=== PATIENT | male | born 1980 | race American Indian/Alaskan Native ===

== ENCOUNTER 2017-02-28 09:08 | Emergency (ER) | payer BC, OTHER ==
[2017-02-28 10:41] VITALS: BP 120/73
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
== END 2017-02-28 13:01 | disposition home or self-care (01) ==
LOC: ED 09:08
DX: S46.911A Strain of unspecified muscle, fascia and tendon at shoulder and upper arm level, right arm, initial encounter (principal); M79.1 Myalgia; J45.909 Unspecified asthma, uncomplicated; F17.200 Nicotine dependence, unspecified, uncomplicated; F12.10 Cannabis abuse, uncomplicated; V49.49XA Driver injured in collision with other motor vehicles in traffic accident, initial encounter; Y93.89 Activity, other specified; Y92.89 Other specified places as the place of occurrence of the external cause; Y99.8 Other external cause status
CPT/HCPCS: 99282

== ENCOUNTER 2017-10-08 09:30 | Emergency (ER) | payer BC ==
--- NOTE | 2017-10-08 10:48 | Emergency Department Report ---
- General Chief complaint: Skin Rash Stated complaint: RASH Time Seen by Provider: 10/08/17 10:26 Source: patient Mode of arrival: Ambulatory Limitations: No Limitations - History of Present Illness Initial comments: 37-year-old male with a past medical history of asthma as a child presents to the Hospital complaining of pruritic erythematous papular rash to antecubital fossa, legs, and torso 1 week. Patient switched from [employer] detergent to gain one week ago but denies any other new exposures. He denies shortness of breath, wheezing, throat swelling, or intraoral lesions. Patient is also requesting STD and HIV testing but denies any dysuria or penile discharge. - Related Data Previous Rx's Medication Instructions Recorded Last Taken Type Phenazopyridine [Pyridium] 100 mg PO TID #6 tab 04/27/15 Unknown Rx Cyclobenzaprine [Flexeril] 10 mg PO QHS PRN #20 tablet 02/28/17 Unknown Rx Ibuprofen [Motrin] 800 mg PO Q8HR PRN #30 tablet 02/28/17 Unknown Rx Famotidine [Pepcid] 20 mg PO BID #10 tablet 10/08/17 Unknown Rx RX: predniSONE [Deltasone] 40 mg PO QDAY 5 Days tab 10/08/17 Unknown Rx diphenhydrAMINE [Benadryl CAP] 25 mg PO Q6HR PRN #30 capsule 10/08/17 Unknown Rx Allergies Allergy/AdvReac Type Severity Reaction Status Date / Time No Known Allergies Allergy Unverified 04/27/15 08:14 Abscess Boil HPI - HPI Chief Complaint: Skin Rash Stated Complaint: RASH Time Seen by Provider: 10/08/17 10:26 Home Medications: Previous Rx's Medication Instructions Recorded Last Taken Type Phenazopyridine [Pyridium] 100 mg PO TID #6 tab 04/27/15 Unknown Rx Cyclobenzaprine [Flexeril] 10 mg PO QHS PRN #20 tablet 02/28/17 Unknown Rx Ibuprofen [Motrin] 800 mg PO Q8HR PRN #30 tablet 02/28/17 Unknown Rx Famotidine [Pepcid] 20 mg PO BID #10 tablet 10/08/17 Unknown Rx RX: predniSONE [Deltasone] 40 mg PO QDAY 5 Days tab 10/08/17 Unknown Rx diphenhydrAMINE [Benadryl CAP] 25 mg PO Q6HR PRN #30 capsule 10/08/17 Unknown Rx Allergies/Adverse Reactions: Allergies Allergy/AdvReac Type Severity Reaction Status Date / Time No Known Allergies Allergy Unverified 04/27/15 08:14 ED Review of Systems ROS: Stated complaint: RASH Other details as noted in HPI Comment: All other systems reviewed and negative ED Past Medical Hx - Past Medical History Hx Asthma: Yes (childhood) - Surgical History Past Surgical History?: No - Social History Smoking Status: Current Every Day Smoker Substance Use Type: None - Medications Home Medications: Home Medications Medication Instructions Recorded Confirmed Last Taken Type Phenazopyridine [Pyridium] 100 mg PO TID #6 tab 04/27/15 Unknown Rx Cyclobenzaprine [Flexeril] 10 mg PO QHS PRN #20 tablet 02/28/17 Unknown Rx Ibuprofen [Motrin] 800 mg PO Q8HR PRN #30 tablet 02/28/17 Unknown Rx Famotidine [Pepcid] 20 mg PO BID #10 tablet 10/08/17 Unknown Rx RX: predniSONE [Deltasone] 40 mg PO QDAY 5 Days tab 10/08/17 Unknown Rx diphenhydrAMINE [Benadryl CAP] 25 mg PO Q6HR PRN #30 capsule 10/08/17 Unknown Rx ED Physical Exam - General Limitations: No Limitations - Other Other exam information: General: No limitations, patient is alert in no acute distress Head exam: Atraumatic, normocephalic Eyes exam: Normal appearance ENT: Moist mucous membrane, normal oropharynx without intraoral lesions or swelling Neck exam: Normal inspection, full range of motion, no meningismus nontender Respiratory exam: Clear to auscultation bilateral, no wheezes, rales, crackles Cardiovascular: Normal rate and rhythm, normal heart sounds Abdomen: Soft, nondistended, and nontender, with normal bowel sounds, no rebound, or guarding Extremity: Full range of motion normal inspection no deformity Back: Normal Inspection, full range of motion, no tenderness Neurologic: Alert, oriented x3, cranial nerves intact, no motor or sensory deficit Psychiatric: normal affect, normal mood Skin: A erythematous pruritic rash to antecubital fossa bilaterally an scattered on torso and legs. ED Course Vital Signs 10/08/17 09:35 Temperature 98.9 F Pulse Rate 75 Respiratory 16 Rate Blood Pressure 115/73 O2 Sat by Pulse 98 Oximetry - Reevaluation(s) Reevaluation #1: 10/08/17 10:46 Solu-Medrol IM given in the ED ED Medical Decision Making - Medical Decision Making Patient has a pruritic papular rash without systemic symptoms. The treated for allergic reaction given a history of new exposure to detergent. History of childhood asthma but not no diagnosis of eczema in the past. Outpatient follow- up encouraged. PMD/health department follow-up encouraged for STD treatment since patient is asymptomatic and requesting testing for STDs and HIV - Differential Diagnosis eczema, allergic reaction, infectious rash Critical Care Time: No Critical care attestation.: If time is entered above; I have spent that time in minutes in the direct care of this critically ill patient, excluding procedure time. ED Disposition Clinical Impression: Allergic dermatitis Disposition: TO HOME OR SELFCARE Is pt being admited?: No Does the pt Need Aspirin: No Condition: Stable Instructions: Allergies (ED), Acute Rash (ED) Additional Instructions: Take medications as prescribed. Follow with the primary care doctor and composite laminator provided. Return if symptoms worsen as indicated by your discharge instructions. Follow with the [facility] or primary care doctor for further STD testing Prescriptions: diphenhydrAMINE [Benadryl CAP] 25 mg PO Q6HR PRN #30 capsule PRN Reason: Itching Famotidine [Pepcid] 20 mg PO BID #10 tablet RX: predniSONE [Deltasone] 40 mg PO QDAY 5 Days tab Referrals: [facility] [Outside] - 3-5 Days MARCELA WALTERS MD [Staff Physician] - 3-5 Days (primary care doctor ) YG YU MD [Staff Physician] - 3-5 Days (dermatology) [facility] [Provider Group] - 3-5 Days (primary care clinic) Time of Disposition: 10:50
[2017-10-08 11:21] VITALS: BP 128/76
== END 2017-10-08 11:18 | disposition home or self-care (01) ==
LOC: ED 09:30
DX: L23.9 Allergic contact dermatitis, unspecified cause (principal); J45.909 Unspecified asthma, uncomplicated; F17.200 Nicotine dependence, unspecified, uncomplicated
CPT/HCPCS: 96372; 99282; J2930

== ENCOUNTER 2017-12-13 07:49 | Emergency (ER) | payer BC ==
[2017-12-13 08:02] VITALS: BP 112/79
--- NOTE | 2017-12-13 08:20 | Emergency Department Report ---
ED General Adult HPI - General Chief complaint: Skin Rash Stated complaint: BROKE OUT Time Seen by Provider: 12/13/17 08:15 Source: patient, RN notes reviewed, old records reviewed Mode of arrival: Ambulatory Limitations: No Limitations - History of Present Illness Initial comments: This is a 37-year-old male who is not known to this provider previously, denies chronic medical conditions who presents to the ER with rash on his bilateral anterior forearms, and itchiness of his bilateral anterior forearms, and rash and itching to his anterior tibial region, and puffiness to his face. He reports that he was in his usual state of health up until 3 days ago when he was outside mowing the lawn in the direct sun. He reports that he did not apply sunblock. He denies new creams, colognes, perfumes. He is not certain but he thinks he may have touched some plant-based material as well. -: Gradual Location: face, left, right, upper extremity, lower extremity Quality: other (itchy) Consistency: constant Improves with: none Worsens with: none Associated Symptoms: rash. denies: confusion, chest pain, cough, diaphoresis, fever/chills, headaches, loss of appetite, malaise, nausea/vomiting, seizure, shortness of breath, syncope, weakness - Related Data Previous Rx's Medication Instructions Recorded Last Taken Type Phenazopyridine [Pyridium] 100 mg PO TID #6 tab 04/27/15 Unknown Rx Cyclobenzaprine [Flexeril] 10 mg PO QHS PRN #20 tablet 02/28/17 Unknown Rx Ibuprofen [Motrin] 800 mg PO Q8HR PRN #30 tablet 02/28/17 Unknown Rx Famotidine [Pepcid] 20 mg PO BID #10 tablet 10/08/17 Unknown Rx diphenhydrAMINE [Benadryl CAP] 25 mg PO Q6HR PRN #30 capsule 10/08/17 Unknown Rx predniSONE [Deltasone] 40 mg PO QDAY 5 Days tab 10/08/17 Unknown Rx Calamine/Zinc Oxide [Calamine 177 ml TP BID #1 lotion 12/13/17 Unknown Rx Lotion] hydrOXYzine HCL [Atarax] 25 mg PO Q6HR PRN #30 tablet 12/13/17 Unknown Rx Allergies Allergy/AdvReac Type Severity Reaction Status Date / Time No Known Allergies Allergy Unverified 04/27/15 08:14 ED Review of Systems ROS: Stated complaint: BROKE OUT Other details as noted in HPI Constitutional: denies: fever Eyes: denies: eye discharge, vision change ENT: denies: epistaxis Respiratory: denies: cough Cardiovascular: denies: chest pain Gastrointestinal: denies: abdominal pain Skin: rash ED Past Medical Hx - Past Medical History Previous Medical History?: Yes Hx Asthma: Yes (childhood) - Surgical History Past Surgical History?: No - Social History Smoking Status: Current Every Day Smoker Substance Use Type: None - Medications Home Medications: Home Medications Medication Instructions Recorded Confirmed Last Taken Type Phenazopyridine [Pyridium] 100 mg PO TID #6 tab 04/27/15 Unknown Rx Cyclobenzaprine [Flexeril] 10 mg PO QHS PRN #20 tablet 02/28/17 Unknown Rx Ibuprofen [Motrin] 800 mg PO Q8HR PRN #30 tablet 02/28/17 Unknown Rx Famotidine [Pepcid] 20 mg PO BID #10 tablet 10/08/17 Unknown Rx diphenhydrAMINE [Benadryl CAP] 25 mg PO Q6HR PRN #30 capsule 10/08/17 Unknown Rx predniSONE [Deltasone] 40 mg PO QDAY 5 Days tab 10/08/17 Unknown Rx Calamine/Zinc Oxide [Calamine 177 ml TP BID #1 lotion 12/13/17 Unknown Rx Lotion] hydrOXYzine HCL [Atarax] 25 mg PO Q6HR PRN #30 tablet 12/13/17 Unknown Rx ED Physical Exam - General Limitations: No Limitations General appearance: alert, in no apparent distress - Head Head exam: Present: atraumatic, normocephalic - Eye Eye exam: Present: normal appearance, EOMI. Absent: nystagmus - ENT ENT exam: Present: normal exam, normal orophraynx, mucous membranes moist, normal external ear exam, other (the patient is speaking in full sentences. There is no stridor, there is no trismus. There is no malocclusion.) - Neck Neck exam: Present: normal inspection, full ROM. Absent: tenderness, meningismus - Respiratory Respiratory exam: Present: normal lung sounds bilaterally. Absent: respiratory distress - Cardiovascular Cardiovascular Exam: Present: regular rate, normal rhythm, normal heart sounds. Absent: bradycardia, tachycardia, irregular rhythm, systolic murmur, diastolic murmur, rubs, gallop - GI/Abdominal GI/Abdominal exam: Present: soft, normal bowel sounds. Absent: distended, tenderness, guarding, rebound, rigid, pulsatile mass - Rectal Rectal exam: Present: deferred - Extremities Exam Extremities exam: Present: full ROM, normal capillary refill, other (2+ pulses noted in the bilateral upper, lower extremities. Compartments soft. No long bony tenderness. The pelvis is stable.). Absent: normal inspection (there are nontender lesions/papules noted on the anterior cubital fossa. There is blanching erythema noted on the upper and lower extremities. There is no streaking, pus or crepitus), tenderness, pedal edema, joint swelling, calf tenderness - Back Exam Back exam: Present: normal inspection, full ROM. Absent: tenderness, CVA tenderness (R), paraspinal tenderness, vertebral tenderness - Neurological Exam Neurological exam: Present: alert, oriented X3, CN II-XII intact, normal gait, other (Extraocular movements intact. Tongue midline. No facial droop. Facial sensation intact to light touch in the V1, V2, V3 distribution bilaterally. 5 and 5 strength in 4 extremities.. Sensation is intact to light touch in 4 extremities.). Absent: motor sensory deficit - Psychiatric Psychiatric exam: Present: normal affect, normal mood - Skin Skin exam: Present: warm, rash, erythema. Absent: vesicles ED Course Vital Signs 12/13/17 07:59 Temperature 97.7 F Pulse Rate 75 Respiratory 16 Rate Blood Pressure 112/79 O2 Sat by Pulse 98 Oximetry ED Medical Decision Making - Lab Data Vital Signs 12/13/17 07:59 Temperature 97.7 F Pulse Rate 75 Respiratory 16 Rate Blood Pressure 112/79 O2 Sat by Pulse 98 Oximetry - Medical Decision Making Differential diagnosis, including but not limited to: Poison IV, plant-based rash, photodermatitis, sunburn Assessment and plan: 37-year-old male with rash after being out in the sun. May be sunburn versus component of plant based allergens. He she will be managed symptomatically with calamine lotion and as needed Atarax. He is encouraged to apply sunblock when outside. Critical care attestation.: If time is entered above; I have spent that time in minutes in the direct care of this critically ill patient, excluding procedure time. ED Disposition Clinical Impression: Rash Disposition: DC-01 TO HOME OR SELFCARE Is pt being admited?: No Does the pt Need Aspirin: No Condition: Good Instructions: Sunburn (ED), Poison Ana Laura (ED) Additional Instructions: Make certain to apply sunblock when outside in sun exposed areas. Patient may purchase oatmeal bath [id number] for symptom relief. Use calamine lotion as directed, and avoid placement of the lotion into the eyes. Follow up with a primary care doctor within the next month. Return to the ER right away with fevers, chills, lethargy, irritability, projectile vomiting, change in mental status, confusion, inability to tolerate liquid feedings. Referrals: [facility] [Provider Group] - 3-5 Days
== END 2017-12-13 09:17 | disposition home or self-care (01) ==
LOC: ED 07:49
DX: R21 Rash and other nonspecific skin eruption (principal); J45.909 Unspecified asthma, uncomplicated; F17.200 Nicotine dependence, unspecified, uncomplicated
CPT/HCPCS: 99282

== ENCOUNTER 2019-01-01 19:36 | Emergency (ER) | payer SELFPAY | END 2019-01-01 19:56 | disposition left against medical advice (07) | LOC: ED 19:36 | DX: Z04.1 Encounter for examination and observation following transport accident (principal); Z53.21 Procedure and treatment not carried out due to patient leaving prior to being seen by health care provider ==

== ENCOUNTER 2019-01-01 21:24 | Emergency (ER) | payer OTHER ==
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
--- NOTE | 2019-01-01 22:54 | XRay Report ---
LUMBAR SPINE 3 VIEWS. INDICATION / CLINICAL INFORMATION: pain low back COMPARISON: None available. FINDINGS: BONES / JOINT(S): No acute fracture or subluxation. No significant arthritis. SOFT TISSUES: No significant abnormality. ADDITIONAL FINDINGS: None. Signer Name: Mikael Lewis MD Signed: 01/01/2019 10:50 PM Workstation Name: [id number]
--- NOTE | 2019-01-01 22:58 | XRay Report ---
CERVICAL SPINE 3 VIEWS INDICATION / CLINICAL INFORMATION: pain neck. COMPARISON: None available. FINDINGS: No fracture, subluxation or other acute abnormality. Signer Name: Barry Reyes MD Signed: 01/01/2019 10:53 PM Workstation Name: [id number]
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
[2019-01-02 00:27] VITALS: BP 128/84
== END 2019-01-02 00:26 | disposition home or self-care (01) ==
LOC: ED 21:24
DX: M54.5 Low back pain (principal); M54.2 Cervicalgia; J45.909 Unspecified asthma, uncomplicated; F17.200 Nicotine dependence, unspecified, uncomplicated; Z79.899 Other long term (current) drug therapy; V89.2XXA Person injured in unspecified motor-vehicle accident, traffic, initial encounter; Y93.89 Activity, other specified; Y92.488 Other paved roadways as the place of occurrence of the external cause; Y99.8 Other external cause status
CPT/HCPCS: 72040; 72100

== ENCOUNTER 2019-06-26 12:29 | Emergency (ER) | payer OTHER ==
[2019-06-26 13:18] VITALS: BP 124/74
--- NOTE | 2019-06-26 14:08 | Emergency Department Report ---
{null, ED General Adult HPI - General Chief complaint: Fall Stated complaint: RT LEG INJURY Time Seen by Provider: 06/26/19 14:07 Source: patient Mode of arrival: Ambulatory Limitations: No Limitations - Related Data Previous Rx's Medication Instructions Recorded Last Taken Type Phenazopyridine [Pyridium] 100 mg PO TID #6 tab 04/27/15 Unknown Rx Cyclobenzaprine [Flexeril] 10 mg PO QHS PRN #20 tablet 02/28/17 Unknown Rx Ibuprofen [Motrin] 800 mg PO Q8HR PRN #30 tablet 02/28/17 Unknown Rx Famotidine [Pepcid] 20 mg PO BID #10 tablet 10/08/17 Unknown Rx diphenhydrAMINE [Benadryl CAP] 25 mg PO Q6HR PRN #30 capsule 10/08/17 Unknown Rx predniSONE [Deltasone] 40 mg PO QDAY 5 Days tab 10/08/17 Unknown Rx Calamine/Zinc Oxide [Calamine 177 ml TP BID #1 lotion 12/13/17 Unknown Rx Lotion] hydrOXYzine HCL [Atarax] 25 mg PO Q6HR PRN #30 tablet 12/13/17 Unknown Rx Ketorolac [Toradol] 10 mg PO Q6H PRN #15 tablet 01/01/19 Unknown Rx methOCARBAMOL [Robaxin] 750 mg PO Q8H PRN #21 tablet 01/01/19 Unknown Rx Allergies Allergy/AdvReac Type Severity Reaction Status Date / Time No Known Allergies Allergy Verified 01/01/19 21:27 ED Review of Systems ROS: Stated complaint: RT LEG INJURY Other details as noted in HPI Constitutional: denies: chills, fever Eyes: denies: eye pain, eye discharge, vision change ENT: denies: ear pain, throat pain Respiratory: denies: cough, shortness of breath, wheezing Cardiovascular: denies: chest pain, palpitations Endocrine: no symptoms reported Gastrointestinal: denies: abdominal pain, nausea, diarrhea Genitourinary: denies: urgency, dysuria Musculoskeletal: arthralgia Skin: denies: rash, lesions Neurological: denies: headache, weakness, paresthesias Psychiatric: denies: anxiety, depression Hematological/Lymphatic: denies: easy bleeding, easy bruising ED Past Medical Hx - Past Medical History Hx Asthma: Yes (childhood) - Surgical History Past Surgical History?: No - Social History Smoking Status: Current Every Day Smoker Substance Use Type: None - Medications Home Medications: Home Medications Medication Instructions Recorded Confirmed Last Taken Type Phenazopyridine [Pyridium] 100 mg PO TID #6 tab 04/27/15 Unknown Rx Cyclobenzaprine [Flexeril] 10 mg PO QHS PRN #20 tablet 02/28/17 Unknown Rx Ibuprofen [Motrin] 800 mg PO Q8HR PRN #30 tablet 02/28/17 Unknown Rx Famotidine [Pepcid] 20 mg PO BID #10 tablet 10/08/17 Unknown Rx diphenhydrAMINE [Benadryl CAP] 25 mg PO Q6HR PRN #30 capsule 10/08/17 Unknown Rx predniSONE [Deltasone] 40 mg PO QDAY 5 Days tab 10/08/17 Unknown Rx Calamine/Zinc Oxide [Calamine 177 ml TP BID #1 lotion 12/13/17 Unknown Rx Lotion] hydrOXYzine HCL [Atarax] 25 mg PO Q6HR PRN #30 tablet 12/13/17 Unknown Rx Ketorolac [Toradol] 10 mg PO Q6H PRN #15 tablet 01/01/19 Unknown Rx methOCARBAMOL [Robaxin] 750 mg PO Q8H PRN #21 tablet 01/01/19 Unknown Rx ED Physical Exam - General Limitations: No Limitations General appearance: alert, in no apparent distress - Head Head exam: Present: atraumatic, normocephalic - Eye Eye exam: Present: normal appearance - ENT ENT exam: Present: mucous membranes moist - Neck Neck exam: Present: normal inspection - Respiratory Respiratory exam: Present: normal lung sounds bilaterally. Absent: respiratory distress - Cardiovascular Cardiovascular Exam: Present: regular rate, normal rhythm. Absent: systolic murmur, diastolic murmur, rubs, gallop - GI/Abdominal GI/Abdominal exam: Present: soft, normal bowel sounds - Rectal Rectal exam: Present: deferred - Extremities Exam Extremities exam: Present: normal inspection - Back Exam Back exam: Present: normal inspection - Neurological Exam Neurological exam: Present: alert, oriented X3 - Psychiatric Psychiatric exam: Present: normal affect, normal mood - Skin Skin exam: Present: warm, dry, intact, normal color. Absent: rash ED Course Vital Signs 06/26/19 13:15 Temperature 98.4 F Pulse Rate 67 Respiratory 16 Rate Blood Pressure 124/74 O2 Sat by Pulse 99 Oximetry Critical care attestation.: If time is entered above; I have spent that time in minutes in the direct care of this critically ill patient, excluding procedure time. ED Disposition Condition: Stable }
--- NOTE | 2019-06-26 14:48 | Event Note ---
{null, ED Screening Note ED Screening Note: yesterday fell off of a ladder states it was a 15 ft ladder c/o right hip/right femur and right ankle no LOC no n/v no numbness no weakness no bowel or bladder incontinence no pmhx no allergies to meds This initial assessment/diagnostic orders/clinical plan/treatment(s) is/are subject to change based on patients health status, clinical progression and re- assessment by fellow clinical providers in the ED. Further treatment and workup at subsequent clinical providers discretion. Patient/guardian urged not to elope from the ED as their condition may be serious if not clinically assessed and managed. Initial orders include: XR right hip, XR right femur, XR right ankle }
--- NOTE | 2019-06-26 15:33 | XRay Report ---
{null, RIGHT ANKLE 3 VIEWS INDICATION / CLINICAL INFORMATION: fall from ladder, right ankle pain COMPARISON: None available. FINDINGS: BONES and JOINT(S): No acute fracture or subluxation. No significant arthritis. SOFT TISSUES: No significant abnormality. ADDITIONAL FINDINGS: None. IMPRESSION: No acute abnormality of the right ankle. Signer Name: Ronnie Lawson MD Signed: 06/26/2019 3:29 PM Workstation Name: [id number] }
--- NOTE | 2019-06-26 15:33 | XRay Report ---
{null, RIGHT HIP 2 VIEWS INDICATION: fall from ladder, right hip pain. COMPARISON: None. IMPRESSION: No acute osseous or soft tissue abnormality. No significant DJD. Signer Name: Krishan Evans Jr, MD Signed: 06/26/2019 3:29 PM Workstation Name: [id number] }
--- NOTE | 2019-06-26 15:38 | XRay Report ---
{null, RIGHT FEMUR HISTORY: Fall from ladder and pain. COMPARISON: None. TECHNIQUE: 2 views of the right femur were obtained. FINDINGS: Bones: No fracture or dislocation. Joint spaces: Maintained. Soft tissues: No significant abnormality. Additional findings: None. IMPRESSION: 1. No significant abnormality. Signer Name: Thien Houston MD Signed: 06/26/2019 3:34 PM Workstation Name: [id number] }
[2019-06-26] MEDS ORDERED: IBUPROFEN 800 MG TAB PO ONE (18:28)
--- NOTE | 2019-06-26 18:34 | Emergency Department Report ---
{null, ED Fall HPI - General Chief Complaint: Fall Stated Complaint: RT LEG INJURY Time Seen by Provider: 06/26/19 14:07 Source: patient Mode of arrival: Ambulatory Limitations: No Limitations - History of Present Illness MD Complaint: fall -: Last night Fall From: from height (distance) (10 steps) Fall Witnessed: no Place Fall Occurred: home Loss of Consciousness: none Prolonged Down Time?: no Symptoms Prior to Fall: none Location - Extremities: Right: Leg, Ankle Severity: severe Severity scale (0 -10): 10 Quality: aching Context: tripped/slipped Associated Symptoms: denies - Related Data Previous Rx's Medication Instructions Recorded Last Taken Type Phenazopyridine [Pyridium] 100 mg PO TID #6 tab 04/27/15 Unknown Rx Cyclobenzaprine [Flexeril] 10 mg PO QHS PRN #20 tablet 02/28/17 Unknown Rx Famotidine [Pepcid] 20 mg PO BID #10 tablet 10/08/17 Unknown Rx diphenhydrAMINE [Benadryl CAP] 25 mg PO Q6HR PRN #30 capsule 10/08/17 Unknown Rx predniSONE [Deltasone] 40 mg PO QDAY 5 Days tab 10/08/17 Unknown Rx Calamine/Zinc Oxide [Calamine 177 ml TP BID #1 lotion 12/13/17 Unknown Rx Lotion] hydrOXYzine HCL [Atarax] 25 mg PO Q6HR PRN #30 tablet 12/13/17 Unknown Rx Ketorolac [Toradol] 10 mg PO Q6H PRN #15 tablet 01/01/19 Unknown Rx methOCARBAMOL [Robaxin] 750 mg PO Q8H PRN #21 tablet 01/01/19 Unknown Rx Ibuprofen [Motrin 800 MG tab] 800 mg PO Q8HR PRN #30 tablet 06/26/19 Unknown Rx Methocarbamol [Robaxin] 500 mg PO BID PRN #15 tablet 06/26/19 Unknown Rx Allergies Allergy/AdvReac Type Severity Reaction Status Date / Time No Known Allergies Allergy Verified 01/01/19 21:27 ED Review of Systems ROS: Stated complaint: RT LEG INJURY Other details as noted in HPI Constitutional: denies: chills, fever Respiratory: denies: cough, shortness of breath, wheezing Cardiovascular: denies: chest pain, palpitations Gastrointestinal: denies: abdominal pain, nausea, diarrhea Musculoskeletal: arthralgia (right thigh pain, right ankle pain, and right hip pain). denies: back pain, joint swelling Skin: denies: rash, lesions Neurological: denies: headache, weakness, paresthesias Psychiatric: denies: anxiety, depression ED Past Medical Hx - Past Medical History Hx Asthma: Yes (childhood) - Surgical History Past Surgical History?: No - Social History Smoking Status: Current Every Day Smoker Substance Use Type: Alcohol - Medications Home Medications: Home Medications Medication Instructions Recorded Confirmed Last Taken Type Phenazopyridine [Pyridium] 100 mg PO TID #6 tab 04/27/15 Unknown Rx Cyclobenzaprine [Flexeril] 10 mg PO QHS PRN #20 tablet 02/28/17 Unknown Rx Famotidine [Pepcid] 20 mg PO BID #10 tablet 10/08/17 Unknown Rx diphenhydrAMINE [Benadryl CAP] 25 mg PO Q6HR PRN #30 capsule 10/08/17 Unknown Rx predniSONE [Deltasone] 40 mg PO QDAY 5 Days tab 10/08/17 Unknown Rx Calamine/Zinc Oxide [Calamine 177 ml TP BID #1 lotion 12/13/17 Unknown Rx Lotion] hydrOXYzine HCL [Atarax] 25 mg PO Q6HR PRN #30 tablet 12/13/17 Unknown Rx Ketorolac [Toradol] 10 mg PO Q6H PRN #15 tablet 01/01/19 Unknown Rx methOCARBAMOL [Robaxin] 750 mg PO Q8H PRN #21 tablet 01/01/19 Unknown Rx Ibuprofen [Motrin 800 MG tab] 800 mg PO Q8HR PRN #30 tablet 06/26/19 Unknown Rx Methocarbamol [Robaxin] 500 mg PO BID PRN #15 tablet 06/26/19 Unknown Rx ED Physical Exam - General Limitations: No Limitations General appearance: alert, in no apparent distress - Respiratory Respiratory exam: Present: normal lung sounds bilaterally. Absent: respiratory distress - Cardiovascular Cardiovascular Exam: Present: regular rate, normal rhythm. Absent: systolic murmur, diastolic murmur, rubs, gallop - GI/Abdominal GI/Abdominal exam: Present: soft, normal bowel sounds. Absent: distended, tenderness, guarding, rebound, rigid - Extremities Exam Extremities exam: Present: normal inspection - Expanded Lower Extremity Exam Right Hip exam: Present: normal inspection, full ROM. Absent: tenderness, swelling, abrasion, laceration, ecchymosis, deformity, crepidus, dislocation, erythema, external rotation, internal rotation ED Course Vital Signs 06/26/19 13:15 Temperature 98.4 F Pulse Rate 67 Respiratory 16 Rate Blood Pressure 124/74 O2 Sat by Pulse 99 Oximetry Critical care attestation.: If time is entered above; I have spent that time in minutes in the direct care of this critically ill patient, excluding procedure time. ED Disposition Clinical Impression: Right hip pain, Acute pain of right thigh, Acute right ankle pain, Sprain and strain Fall Qualifiers: Encounter type: initial encounter Qualified Code(s): W19.XXXA - Unspecified fall, initial encounter Contusion Qualifiers: Encounter type: initial encounter Contusion area: thigh Laterality: right Qualified Code(s): S70.11XA - Contusion of right thigh, initial encounter Disposition: TO HOME OR SELFCARE Is pt being admited?: No Condition: Stable Instructions: Arthralgia (ED), Contusion in Adults (ED), Muscle Strain (ED) Additional Instructions: Rest Use ice or heat on affected area for 20 minutes and off for 2 hours. Take pain medication as needed for pain. Follow up with Primary Care Provider in 2-3 days. Prescriptions: Ibuprofen [Motrin 800 MG tab] 800 mg PO Q8HR PRN #30 tablet PRN Reason: Pain Methocarbamol [Robaxin] 500 mg PO BID PRN #15 tablet PRN Reason: Muscle Spasm Referrals: [facility] [place] [Outside] - 3-5 Days [facility] [Outside] - 3-5 Days [facility] [Outside] - 3-5 Days Forms: Work/School Release Form(ED) Time of Disposition: 18:46 }
== END 2019-06-26 19:00 | disposition home or self-care (01) ==
LOC: ED 12:29
DX: S70.11XA Contusion of right thigh, initial encounter (principal); J45.909 Unspecified asthma, uncomplicated; F17.200 Nicotine dependence, unspecified, uncomplicated; M25.551 Pain in right hip; M25.571 Pain in right ankle and joints of right foot; Z79.899 Other long term (current) drug therapy; W17.89XA Other fall from one level to another, initial encounter; Y93.89 Activity, other specified; Y92.098 Other place in other non-institutional residence as the place of occurrence of the external cause; Y99.8 Other external cause status